=== PATIENT | female | born 1990 | race Two or more races ===

== ENCOUNTER → 2025-04-03 | Outpatient (CLI) | payer MEDICAID, SELFPAY ==
[2025-04-02 10:53] LABS: Basophils % (Auto) 0 % (0-2.5); Eosinophils # (Auto) 0.1 Thou/mm3 (0.0-0.5); Eosinophils % (Auto) 1 % (0-10); Hematocrit 39.6 % (36.0-46.0); Hemoglobin 12.3 g/dL (12.0-16.0); Immature Granulocytes % (Auto) 0 % (0-0); Immature Granulocytes Auto 0.02 Thou/mm3 (0.00-0.00); Lymphocytes # (Auto) 1.3 Thou/mm3 (1.0-4.8); Lymphocytes % (Auto) 13 % (10-50); Mean Corpuscular HGB Conc 31.1 g/dl (31.0-37.0); Mean Corpuscular Hemoglobin 25.7 pg (25.0-35.0); Mean Corpuscular Volume 83 fL (80-100); Monocytes # (Auto) 0.4 Thou/mm3 (0.0-0.8); Monocytes % (Auto) 4 % (0-12); Neutrophils # (Auto) 8.5 Thou/mm3 (1.8-7.7); Neutrophils % (Auto) 82 % (37-80); Nucleated Red Blood Cell % 0 /100 WBC (0); Platelet Count 390 Thou/mm3 (140-440); RDW Standard Deviation 43.2 fL (36.4-46.3); Red Blood Count 4.78 Miln/mm3 (4.00-5.20); White Blood Count 10.3 Thou/mm3 (3.6-11.0)
[2025-04-02 10:59] LABS: HCG,Qualitative Serum Negative
[2025-04-02 11:01] LABS: Prothrombin Time 10.6 Seconds (9.0-12.2)
--- NOTE | 2025-04-03 08:00 | XR_ITS ---
Examination: Thyroid sonography complete TECHNIQUE: Grayscale sonographic images thyroid lobes INDICATIONS: March 31, 2024 thyroid sonogram vascular lower pole right thyroid nodule 17 mm Isthmus nodule 7 mm Date and time: April 03, 2025 0859 hours FINDINGS: Right thyroid 6.1 cm Lower pole nodules 2.0 x 1.7 cm, 0.9 x 0.9 cm Left thyroid 4.6 cm Upper pole nodule 5 x 5 mm IMPRESSION: Bilateral thyroid nodules as above
--- NOTE | 2025-04-03 08:30 | XR_ITS ---
Examination: Ultrasound-guided fine needle percutaneous aspiration thyroid nodule, lower pole right thyroid nodule. Thyroid sonography, limited Exam date and time: April 03, 2025 0906 hours INDICATIONS: Vascular lower pole right thyroid nodule on thyroid sonogram today. Technique: A timeout was completed verifying correct patient, procedure, site, positioning and special equipment if applicable. The patient was placed in supine position for the thyroid fine needle percutaneous aspiration The patient's right neck was prepped and draped in sterile fashion. Maximum barrier sterile technique, hand hygiene, ultrasound sterile technique. 1% lidocaine was used to anesthetize the skin and subcutaneous tissues to the patient's right thyroid nodule. Multiple fine needle aspirations were performed and multiple thyroid specimens placed in preservative according to the irm protocol. Specimens appears satisfactory. The attending radiologist was present for the entire procedure. Estimated blood loss 3 cc. The patient tolerated the procedure well and there were no complications. Impression: Successful ultrasound-guided fine-needle percutaneous aspiration thyroid nodule, lower pole right thyroid nodule.
== END | disposition home or self-care (01) ==
LOC: SDIM 07:42
PROVIDERS: Radiology Diagnostic Radiology; PCP Obstetrics & Gynecology; Referring Provider Obstetrics & Gynecology; Visit Provider Obstetrics & Gynecology
DX: E04.2 Nontoxic multinodular goiter (principal); Z01.812 Encounter for preprocedural laboratory examination
CPT/HCPCS: 10005; 36415; 76536; 84703; 85025; 85610; 85730

== ENCOUNTER 2025-09-11 08:30 | Outpatient (RCR) | payer MEDICAID, SELFPAY ==
[2025-09-10 08:09] LABS: HCG Qualitative,Urine Negative
--- NOTE | 2025-09-10 08:30 | XR_ITS ---
EXAMINATION: Nuclear medicine thyroid uptake and scan Date and time: September 10, 2025, 1527 hours INDICATIONS: Diagnosis thyrotoxicosis, ultrasound examination thyroid April 03, 2025 thyroid nodules TECHNIQUE AND FINDINGS: Oral administration 296 uCi [id number] 24-hour 6-hour uptake values recorded in anterior applied scans 6-hour uptake 15.9% normal range 6 to 24% 24-hour uptake 27.4% normal range 10 to 36% Large cold nodule lower right thyroid lobe IMPRESSION: Normal uptake values Large cold nodule right right thyroid lobe
== END 2025-09-16 23:59 | disposition home or self-care (01) ==
LOC: SNUC 08:30
PROVIDERS: PCP Family Medicine; Referring Provider Family Medicine; Visit Provider Family Medicine
DX: E04.1 Nontoxic single thyroid nodule (principal); Z32.00 Encounter for pregnancy test, result unknown
CPT/HCPCS: 78013; 81025; A9516